=== PATIENT | female | born 1950 | race American Indian/Alaskan Native ===

== ENCOUNTER 2019-01-30 05:00 | Inpatient (IN) | payer MEDICARE ==
[2019-01-30 05:42] LABS: Basophils % (Auto) 0.3 % (0.0-1.8); Eosinophils # (Auto) 0.1 K/mm3 (0.0-0.4); Hematocrit 32.7 % (30.3-42.9); Hemoglobin 10.9 gm/dl (10.1-14.3); Lymphocytes # (Auto) 0.9 K/mm3 (1.2-5.4); Mean Corpuscular HGB Conc 33 % (30-34); Mean Corpuscular Volume 82 fl (79-97); Monocytes # (Auto) 0.4 K/mm3 (0.0-0.8); Monocytes % (Auto) 3.9 % (0.0-7.3); Platelet Count 340 K/mm3 (140-440); Red Cell Distribution Width 13.1 % (13.2-15.2)
[2019-01-30 05:55] LABS: Albumin 4.2 g/dL (3.9-5)
[2019-01-30] MEDS ORDERED: DILAUDID IV ONE ×2 (06:31→11:06)
--- NOTE | 2019-01-30 06:32 | Emergency Department Report ---
ED Abdominal Pain HPI - General Chief Complaint: Abdominal Pain Stated Complaint: HYPERGLYCEMIA, ABD PAIN Time Seen by Provider: 01/30/19 06:28 Source: patient, EMS Mode of arrival: Stretcher Limitations: No Limitations - History of Present Illness Initial Comments: Patient is a 68-year-old female presents to emergency room with complaints of left lower quadrant abdominal pain. Patient states the pain started at 2 AM today. Patient states pain is not radiating. Patient states the pain is 10 out of 10. Patient states the pain is better with rest and worse with vomiting and movement. Patient complains of constipation, nausea and vomiting. Patient denies chest pain shortness of breath. Patient denies fever or chills.. MD Complaint: abdominal pain -: Sudden Location: LLQ Radiation: none Migration to: no migration Severity: severe Severity scale (0 -10): 10 Quality: stabbing Consistency: constant Improves With: rest Worsens With: vomiting, movement Associated Symptoms: nausea, vomiting, constipation. denies: diarrhea, fever, chills, dysuria, hematemesis, hematochezia, melena, hematuria, anorexia, syncope - Related Data LMP (females 10-50): unknown Home Medications Medication Instructions Recorded Confirmed Last Taken Aspirin [Adult Aspirin] 81 mg PO DAILY 01/30/19 01/30/19 Unknown Dulaglutide [Trulicity] 1.5 mg SUB-Q TU 01/30/19 01/30/19 Unknown Levothyroxine [Synthroid] 50 mcg PO QDAY 01/30/19 01/30/19 Unknown Losartan/Hydrochlorothiazide 1 each PO DAILY 01/30/19 01/30/19 Unknown [Losartan-Hctz 50-12.5 mg Tab] metFORMIN XR [Glucophage XR] 500 mg PO BID 01/30/19 01/30/19 Unknown Allergies Allergy/AdvReac Type Severity Reaction Status Date / Time No Known Allergies Allergy Verified 01/30/19 05:24 ED Review of Systems ROS: Stated complaint: HYPERGLYCEMIA, ABD PAIN Other details as noted in HPI Constitutional: denies: chills, fever Eyes: denies: eye pain, eye discharge, vision change ENT: denies: ear pain, throat pain Respiratory: denies: cough, shortness of breath, wheezing Cardiovascular: denies: chest pain, palpitations Endocrine: no symptoms reported Gastrointestinal: abdominal pain, nausea, vomiting, constipation. denies: diarrhea Genitourinary: denies: urgency, dysuria, discharge Musculoskeletal: denies: back pain, joint swelling, arthralgia Skin: denies: rash, lesions Neurological: denies: headache, weakness, paresthesias Psychiatric: denies: anxiety, depression Hematological/Lymphatic: denies: easy bleeding, easy bruising ED Past Medical Hx - Past Medical History Previous Medical History?: Yes Hx Hypertension: Yes Hx Diabetes: Yes Additional medical history: hypothyroidism - Surgical History Past Surgical History?: No - Social History Smoking Status: Never Smoker - Medications Home Medications: Home Medications Medication Instructions Recorded Confirmed Last Taken Type Aspirin [Adult Aspirin] 81 mg PO DAILY 01/30/19 01/30/19 Unknown History Dulaglutide [Trulicity] 1.5 mg SUB-Q TU 01/30/19 01/30/19 Unknown History Levothyroxine [Synthroid] 50 mcg PO QDAY 01/30/19 01/30/19 Unknown History Losartan/Hydrochlorothiazide 1 each PO DAILY 01/30/19 01/30/19 Unknown History [Losartan-Hctz 50-12.5 mg Tab] metFORMIN XR [Glucophage XR] 500 mg PO BID 01/30/19 01/30/19 Unknown History ED Physical Exam - General Limitations: No Limitations General appearance: alert, in no apparent distress - Head Head exam: Present: atraumatic, normocephalic - Eye Eye exam: Present: normal appearance - ENT ENT exam: Present: mucous membranes moist - Neck Neck exam: Present: normal inspection - Respiratory Respiratory exam: Present: normal lung sounds bilaterally. Absent: respiratory distress - Cardiovascular Cardiovascular Exam: Present: regular rate, normal rhythm. Absent: systolic murmur, diastolic murmur, rubs, gallop - GI/Abdominal GI/Abdominal exam: Present: soft, tenderness (tenderness to palpation to left lower quadrant), normal bowel sounds - Extremities Exam Extremities exam: Present: normal inspection - Back Exam Back exam: Present: normal inspection - Neurological Exam Neurological exam: Present: alert, oriented X3 - Psychiatric Psychiatric exam: Present: normal affect, normal mood - Skin Skin exam: Present: warm, dry, intact, normal color. Absent: rash ED Course Vital Signs 01/30/19 05:27 Temperature 98.1 F Pulse Rate 85 Respiratory 18 Rate Blood Pressure 147/69 [Left] O2 Sat by Pulse 99 Oximetry - Reevaluation(s) Reevaluation #1: I discussed all results with patient. I discussed plan of care outpatient. Patient is pleasant here. Patient states her pain was improving but now is returning. 01/30/19 11:06 ED Medical Decision Making - Lab Data Result diagrams: 01/30/19 05:27 01/30/19 05:27 - Radiology Data Radiology results: report reviewed CT ABDOMEN AND PELVIS WITH CONTRAST HISTORY: Abdominal pain, left lower quadrant abdominal pain. COMPARISON: None. TECHNIQUE: Helical CT images of the abdomen and pelvis were obtained following administration of intravenous contrast. Sagittal and coronal reformatted images were reviewed. All CT scans at this location are performed using CT dose reduction for ALARA by means of automated exposure control. CONTRAST: 60 ml of intravenous contrast administered. FINDINGS: Abdomen/pelvis: A large calculus measuring 1.0 x 0.9 x 2.0 cm is identified at the left ureteropelvic junction. There is mild pyelocaliectasis in the left kidney and mild left perinephric stranding. 2.4 cm and 1.0 cm cysts are noted in the superior left kidney. The right kidney and collecting system are unremarkable. Normal bladder. The liver, biliary system, pancreas, spleen, adrenal glands, uterus, adnexa, bowel loops and appendix are unremarkable. No evidence for ascites, acute inflammation or free air. Lungs/bones: No significant abnormality. IMPRESSION: 1.0 x 0.9 x 2.0 cm stone at the left ureteropelvic junction, mildly obstructing. - Medical Decision Making Patient is a 68-year-old female presents to emergency with complaints of nausea vomiting and abdominal pain. Patient abdominal pain in the left lower quadrant. Patient had a CT scan done which shows obstructive renal stone with perinephric stranding. Patient admitted to the hospitalist service. Patient's labs unremarkable except for an elevated creatinine and decreased GFR consistent with dehydration and acute renal insufficiency. Patient's UA is positive for UTI. Patient given fluids and nausea medications and pain meds in ER. Patient's nausea and pain improved. Patient given antibiotics. - Differential Diagnosis abd pain. diverticulitis. Critical Care Time: Yes Critical care attestation.: If time is entered above; I have spent that time in minutes in the direct care of this critically ill patient, excluding procedure time. Critical Care Time: 35 minutes ED Disposition Clinical Impression: Pyelonephritis, Kidney stone on left side, Dehydration, Renal insufficiency Abdominal pain Qualifiers: Abdominal location: left lower quadrant Qualified Code(s): R10.32 - Left lower quadrant pain Nausea & vomiting Qualifiers: Vomiting type: unspecified Vomiting Intractability: non-intractable Qualified Code(s): R11.2 - Nausea with vomiting, unspecified Disposition: 09 OP ADMIT IP TO THIS HOSP Is pt being admited?: Yes Does the pt Need Aspirin: No Condition: Critical Time of Disposition: 11:39
[2019-01-30 07:14] LABS: Bacteria,Urine 1+ /HPF (Negative); Bilirubin,Urine NEG (Negative); Blood,Urine MOD (Negative); Color,Urine Straw (Yellow); Mucus,Urine FEW /HPF; Protein,Urine <15 mg/dL mg/dL (Negative); Urobilinogen,Urine < 2.0 mg/dL (<2.0)
[2019-01-30] MEDS ORDERED: NACL 0.9% 1000 ML 1,000 ML IV ONE ×2 (07:42→11:06)
--- NOTE | 2019-01-30 11:01 | Cat Scan Report ---
CT ABDOMEN AND PELVIS WITH CONTRAST HISTORY: Abdominal pain, left lower quadrant abdominal pain. COMPARISON: None. TECHNIQUE: Helical CT images of the abdomen and pelvis were obtained following administration of intr avenous contrast. Sagittal and coronal reformatted images were reviewed. All CT scans at this [facility] are performed using CT dose reduction for ALARA by means of automated exposure control. CONTRAST: 60 ml of intravenous contrast administered. FINDINGS: Abdomen/pelvis: A large calculus measuring 1.0 x 0.9 x 2.0 cm is identified at the left ureteropelvi c junction. There is mild pyelocaliectasis in the left kidney and mild left perinephric stranding. 2. 4 cm and 1.0 cm cysts are noted in the superior left kidney. The right kidney and collecting system a re unremarkable. Normal bladder. The liver, biliary system, pancreas, spleen, adrenal glands, uterus, adnexa, bowel loops and appendix are unremarkable. No evidence for ascites, acute inflammation or free air. Lungs/bones: No significant abnormality. IMPRESSION: 1.0 x 0.9 x 2.0 cm stone at the left ureteropelvic junction, mildly obstructing. Signer Name: Lance Pickett Jr, MD Signed: 01/30/2019 10:56 AM Workstation Name: [id number]
[2019-01-30] MEDS ORDERED: MAXIPIME/NS 2 GM/100 ML 2 GM/100 ML BAG IV ONE (11:09)
--- NOTE | 2019-01-30 19:58 | Event Note ---
Date: 01/30/19 See history and physical in the reports Left renal stone at [facility] Hypertension Type 2 diabetes Urology consult requested
[2019-01-30] MEDS ORDERED: NON-FORMULARY (Losartan/Hydrochlorothiazide [Losartan-Hctz 50-12.5 Mg Tab] 1 EACH) PO SCH (20:00)
[2019-01-30] MEDS ORDERED: TYLENOL PO PRN (20:12)
[2019-01-30] MEDS ORDERED: PHENERGAN PR PRN (20:12)
[2019-01-30] MEDS ORDERED: REGLAN IV PRN (20:12)
[2019-01-30] MEDS ORDERED: ZOFRAN IV PRN (20:12)
[2019-01-30] MEDS ORDERED: SODIUM CHLORIDE FLUSH SYRINGE 10 ML IV PRN (20:12)
[2019-01-30] MEDS ORDERED: DILAUDID IV PRN (20:12)
[2019-01-30] MEDS ORDERED: TORADOL IV PRN (20:16)
--- NOTE | 2019-01-30 21:10 | History and Physical Report ---
CHIEF COMPLAINT: Left flank, and left lower quadrant pain since 2:00 a.m. HISTORY OF PRESENT ILLNESS: A 68-year-old -[place] female with a history of hypothyroidism, hypertension and type 2 diabetes, who comes in for first episode of left flank, and left lower quadrant pain. Pain is sharp, about 10 on a scale of 1-10, radiating to the left suprapubic region. No fever or chills. No shortness of breath. Pain is intermittent and very sharp. Not able to tolerate the pain. No nausea present. Vomiting x 1 episode. Also, complains of constipation. No chest pain. Never had similar symptoms in the past. PAST MEDICAL HISTORY: Significant for hypothyroidism, hypertension, type 2 diabetes. PAST SURGICAL HISTORY: None. SOCIAL HISTORY: Does not smoke. No alcohol, no recreational drugs. FAMILY HISTORY: Hypertension. CURRENT MEDICATIONS: Trulicity 1.5 mg subcutaneous q. weekly, levothyroxine 50 mcg p.o. daily, losartan/hydrochlorothiazide 50/12.5 once a day, metformin 500 twice a day. REVIEW OF SYSTEMS: Significant for left flank, and left lower quadrant pain. No fever or chills. Otherwise, 14-point review of systems negative. PHYSICAL EXAMINATION: GENERAL: Elderly female, looks younger than her age. VITAL SIGNS: Blood pressure is 122/60, temperature is 98.2, pulse is 69, respirations are 17, sats are 99%. HEENT: Unremarkable. Pupils are equal and reactive. NECK: Supple, no lymphadenopathy, no thyromegaly. LUNGS: Clear to auscultation and percussion. Good air entry. CARDIOVASCULAR: S1, S2 heard. No gallop, no murmur, no rub. Apical impulse in left fifth intercostal space and midclavicular line. ABDOMEN: Soft and benign. No hepatosplenomegaly. No guarding, no rigidity. Hernial orifices are normal. EXTREMITIES: Good pedal pulses. No pedal edema. CENTRAL NERVOUS SYSTEM: Alert and oriented x 4, nonfocal exam. SKIN: Normal. LABORATORY DATA: Significant for white count of 9500, hemoglobin of 10.9, hematocrit of 32.7 and platelet count of 340,000. Sodium is 137, potassium is 3.9, chloride 100.4, bicarbonate is 24, BUN and creatinine is 26 and 1.1, glucose is 385, albumin is 4.2, albumin globulin 1.2. Urine is negative for infection. Glucose is more than 500. CAT scan shows 1 cm x 0.9 cm x 2.07 cm stone in the left ureteropelvic junction mildly obstructing. ASSESSMENT AND PLAN: 1. Left renal stone. The patient started on IV fluids for possible migration of the stone into the bladder, but the patient may need a urological intervention. Urology consulted. In the meantime, pain management with IV Toradol and IV Dilaudid. IV fluids. 2. Type 2 diabetes. Continue Trulicity and will hold metformin for the time being. Also, sliding scale coverage. 3. Hypertension. Continue losartan and hydrochlorothiazide. 4. Hypothyroidism. Check TSH. Continue levothyroxine. Pain management. Continue IV Toradol alternating with IV Dilaudid. 5. Deep venous thrombosis prophylaxis, Lovenox 40 mg subcutaneous daily. JOB# [id number] VSM/NTS
[2019-01-30] MEDS: PEPCID IV SCH (21:39)
[2019-01-30] MEDS: SYNTHROID PO SCH (21:39)
[2019-01-30] MEDS: PERCOCET 5/325 PO PRN (21:39)
[2019-01-30] MEDS: SODIUM CHLORIDE FLUSH SYRINGE 10 ML IV SCH (21:41)
[2019-01-30] MEDS: NACL 0.9% 1000 ML 1,000 ML IV SCH (21:42)
[2019-01-30] MEDS: HALFPRIN EC PO SCH (21:50)
[2019-01-30] MEDS: HumaLOG SUB-Q SCH (21:51)
[2019-01-30] MEDS: LANTUS SUB-Q SCH ×2 (21:52→22:07)
[2019-01-31] MEDS: NACL 0.9% 1000 ML 1,000 ML IV SCH (05:27)
[2019-01-31 06:49] LABS: Basophils # (Auto) 0.1 K/mm3 (0.0-0.1); Basophils % (Auto) 0.9 % (0.0-1.8); Eosinophils # (Auto) 0.2 K/mm3 (0.0-0.4); Eosinophils % (Auto) 2.4 % (0.0-4.3); Hematocrit 29.4 % (30.3-42.9); Hemoglobin 9.8 gm/dl (10.1-14.3); Lymphocytes % (Auto) 31.2 % (13.4-35.0); Mean Corpuscular HGB Conc 33 % (30-34); Mean Corpuscular Volume 81 fl (79-97); Monocytes # (Auto) 0.7 K/mm3 (0.0-0.8); Monocytes % (Auto) 10.1 % (0.0-7.3); Platelet Count 308 K/mm3 (140-440); Red Blood Count 3.64 M/mm3 (3.65-5.03)
[2019-01-31 07:11] LABS: Albumin 3.3 g/dL (3.9-5); BUN/Creatinine Ratio 15; Blood Urea Nitrogen 18 mg/dL (7-17); Calcium 8.3 mg/dL (8.4-10.2); Hemolysis Index 6
[2019-01-31 07:34] LABS: Alanine Aminotransferase < 5 units/L (7-56)
[2019-01-31] MEDS ORDERED: DIPRIVAN 10 MG/ML IV ONE (08:45)
[2019-01-31] MEDS ORDERED: SUBLIMAZE ONE (08:46)
[2019-01-31] MEDS ORDERED: XYLOCAINE MPF 2% ONE (09:00)
[2019-01-31] MEDS ORDERED: PHENYLEPHRINE/NS Syringe 1,000 MCG/10 ML IV ONE (09:00)
[2019-01-31] MEDS ORDERED: ZOFRAN ONE (09:00)
[2019-01-31] MEDS: HumaLOG SUB-Q SCH ×2 (09:11→12:49)
[2019-01-31] MEDS ORDERED: VERSED ONE (09:13)
[2019-01-31] MEDS ORDERED: SUBLIMAZE IV PRN (09:21)
--- NOTE | 2019-01-31 09:21 | Anesthesia Consultation ---
Anesthesia Consult and Med Hx Date of service: 01/31/19 - Airway Anesthetic Teeth Evaluation: Good ROM Head & Neck: Adequate Mental/Hyoid Distance: Adequate Mallampati Class: Class III Intubation Access Assessment: Possibly Difficult - Pulmonary Exam CTA: Yes - Cardiac Exam Cardiac Exam: RRR - Pre-Operative Health Status ASA Pre-Surgery Classification: ASA2 Proposed Anesthetic Plan: General - Pulmonary Hx Smoking: No Hx Respiratory Symptoms: No - Cardiovascular System Hx Hypertension: Yes Hx Heart Attack/AMI: No Hx Percutaneous Transluminal Coronary Angioplasty (PTCA): No Hx Cardia Arrhythmia: No - Central Nervous System Hx Seizures: No CVA: No - Gastrointestinal Hx Gastroesophageal Reflux Disease: No - Endocrine Hx Renal Disease: No Hx Liver Disease: No Hx Non-Insulin Dependent Diabetes: Yes Hx Hypothyroidism: Yes - Hematic Hx Anemia: Yes - Other Systems Hx Obesity: Yes - Additional Comments Anesthesia Medical History Comments: No prior GA. No FHx anesthetic complications.
--- NOTE | 2019-01-31 09:21 | Anesthesia Day of Surgery ---
Anesthesia Day of Surgery - Day of Surgery Patient Examined: Yes Patient H&P Reviewed: Yes Patient is NPO: Yes
[2019-01-31] MEDS ORDERED: NACL 0.9% 1000 ML 1,000 ML ONE (09:28)
--- NOTE | 2019-01-31 09:41 | Consultation ---
History of Present Illness - Reason for Consult Consult date: 01/31/19 - History of Present Illness new to our service Patient is a 68-year-old female presents to emergency room with complaints of left lower quadrant abdominal pain. Patient states the pain started at 2 AM yesterday. Patient states pain is not radiating. Patient states the pain is 10 out of 10. Patient states the pain is better with rest and worse with vomiting and movement. Patient complains of constipation, nausea and vomiting. Patient denies chest pain shortness of breath. Patient denies fever or chills.. no hx of stones abd soft CTAP-- 1cm x2cm left renal stone with mild hydro a/P left kidney with colic discussed with Dr. Sagastume written info given & discussion cysto, stent will need outpt ESWL vs perc at later time Medications and Allergies Allergies Allergy/AdvReac Type Severity Reaction Status Date / Time No Known Allergies Allergy Verified 01/30/19 20:05 Home Medications Medication Instructions Recorded Confirmed Last Taken Type Aspirin [Adult Aspirin] 81 mg PO DAILY 01/30/19 01/30/19 Unknown History Dulaglutide [Trulicity] 1.5 mg SUB-Q TU 01/30/19 01/30/19 Unknown History Levothyroxine [Synthroid] 50 mcg PO QDAY 01/30/19 01/30/19 Unknown History Losartan/Hydrochlorothiazide 1 each PO DAILY 01/30/19 01/30/19 Unknown History [Losartan-Hctz 50-12.5 mg Tab] metFORMIN XR [Glucophage XR] 500 mg PO BID 01/30/19 01/30/19 Unknown History Active Meds: Active Medications Acetaminophen (Tylenol) 650 mg PO Q4H PRN PRN Reason: Pain MILD(1-3)/Fever >100.5/CORTEZ Aspirin (Halfprin Ec) 81 mg PO DAILY [facility] Last Admin: 01/30/19 21:50 Dose: 81 mg Documented by: Famotidine (Pepcid) 20 mg IV BID [facility] Last Admin: 01/30/19 21:39 Dose: 20 mg Documented by: Fentanyl (Sublimaze) 50 mcg IV Q5MIN PRN PRN Reason: Pain , Severe (7-10) Hydrochlorothiazide (Hctz) 12.5 mg PO QDAY [facility] Hydromorphone HCl (Dilaudid) 1 mg IV Q3H PRN PRN Reason: Pain , Severe (7-10) Sodium Chloride (Nacl 0.9% 1000 Ml) 1,000 mls @ 125 mls/hr IV DIRECT [facility] Last Admin: 01/31/19 05:27 Dose: 125 mls/hr Documented by: Insulin Glargine (Lantus) 20 units SUB-Q QHS [facility] Last Admin: 01/30/19 22:07 Dose: Not Given Documented by: Insulin Human Lispro (Humalog) 0 unit SUB-Q ACHS [facility]; Protocol Last Admin: 01/31/19 09:11 Dose: 3 unit Documented by: Ketorolac Tromethamine (Toradol) 30 mg IV Q6H PRN PRN Reason: Pain, Moderate (4-6) Stop: 02/04/19 20:15 Levothyroxine Sodium (Synthroid) 50 mcg PO QDAY [facility] Last Admin: 01/30/19 21:39 Dose: 50 mcg Documented by: Losartan Potassium (Cozaar) 50 mg PO QDAY [facility] Metoclopramide HCl (Reglan) 10 mg IV Q6H PRN PRN Reason: Nausea And Vomiting Miscellaneous Medication (Dulaglutide [Trulicity]) 1.5 mg SUB-Q TU [facility] Ondansetron HCl (Zofran) 4 mg IV Q8H PRN PRN Reason: Nausea And Vomiting Oxycodone/Acetaminophen (Percocet 5/325) 1 tab PO Q6H PRN PRN Reason: Pain, Moderate (4-6) Last Admin: 01/30/19 21:39 Dose: 1 tab Documented by: Promethazine HCl (Phenergan) 25 mg [place] Q6H PRN PRN Reason: N/V IF NPO AND NO IV ACCESS Sodium Chloride (Sodium Chloride Flush Syringe 10 Ml) 10 ml IV BID [facility] Last Admin: 01/30/19 21:41 Dose: 10 ml Documented by: Sodium Chloride (Sodium Chloride Flush Syringe 10 Ml) 10 ml IV PRN PRN PRN Reason: LINE FLUSH Exam - Constitutional Vitals: Temp Pulse Resp BP Pulse Ox 98.6 F 62 16 108/47 96 01/31/19 05:07 01/31/19 05:07 01/31/19 05:07 01/31/19 05:07 01/31/19 05:07 Results - Labs CBC & Chem 7: 01/31/19 05:38 01/31/19 05:38 Labs: Abnormal lab results 01/30/19 01/30/19 01/30/19 Range/Units 05:27 11:04 21:40 RBC (3.65-5.03) M/mm3 Hgb (10.1-14.3) gm/dl Hct (30.3-42.9) % MCH (28-32) pg RDW (13.2-15.2) % Bucks % (Auto) (0.0-7.3) % BUN (7-17) mg/dL Glucose (65-100) mg/dL POC Glucose 273 H 270 H (70-105) Hemoglobin A1c 10.0 H (4-6) % Calcium (8.4-10.2) mg/dL ALT (7-56) units/L Albumin (3.9-5) g/dL 01/31/19 01/31/19 01/31/19 Range/Units 05:38 05:38 08:22 RBC 3.64 L (3.65-5.03) M/mm3 Hgb 9.8 L (10.1-14.3) gm/dl Hct 29.4 L (30.3-42.9) % MCH 27 L (28-32) pg RDW 13.0 L (13.2-15.2) % Bucks % (Auto) 10.1 H (0.0-7.3) % BUN 18 H (7-17) mg/dL Glucose 246 H (65-100) mg/dL POC Glucose 238 H (70-105) Hemoglobin A1c (4-6) % Calcium 8.3 L (8.4-10.2) mg/dL ALT < 5 L (7-56) units/L Albumin 3.3 L (3.9-5) g/dL
[2019-01-31] MEDS ORDERED: OMNIPAQUE 300 MG/50 ML (CATH LAB) IV ONE (09:51)
[2019-01-31] MEDS ORDERED: COZAAR PO SCH (10:00)
[2019-01-31] MEDS ORDERED: HCTZ PO SCH (10:00)
--- NOTE | 2019-01-31 10:06 | Post Operative Note ---
Date of procedure: 01/31/19 Pre-op diagnosis: left renal stone with colic Post-op diagnosis: same Procedure: cysto, rpg, left stent Anesthesia: RAHAT Surgeon: RIOS ORTIZ Pathology: none Condition: stable Disposition: PACU (ok to dc home from [facility]-harvey on chart /appt 1-2 wks)
--- NOTE | 2019-01-31 10:29 | Operative Report ---
PREOPERATIVE DIAGNOSIS: Left renal stone with colic. POSTOPERATIVE DIAGNOSIS: Left renal stone with colic. PROCEDURE: Cystoscopy, bilateral retrograde pyelograms, left double-J stent placement (6-Moroccan 22 cm with a short internal string). SURGEON: Jakob Benavides MD ANESTHESIA: General. ESTIMATED BLOOD LOSS: Minimal. FLUIDS: Crystalloid. COMPLICATIONS: No complications. INDICATIONS: This patient is a 68-year-old female who presented to the Emergency Room with severe left flank pain. CT of abdomen and pelvis revealed a 1 x 2 cm left renal stone with mild hydronephrosis. She was admitted for pain control, consult by Dr. Arias was obtained. We evaluated the patient. She agreed to proceed with surgical intervention. She understands she will need outpatient lithotripsy. DESCRIPTION OF PROCEDURE: The patient was taken to the operative suite, placed in a supine position. After adequate general anesthesia, placed in a dorsal lithotomy position, prepped and draped in a sterile fashion. Pancystourethroscopy was performed with a 22-Moroccan Storz cystoscope. No bladder pathology. Both ureteral orifices in normal position. No tumors or stones noted. Bilateral retrograde pyelograms were obtained with an 8 Moroccan Gaastra catheter and 8 mL of contrast. No filling defects or obstruction on the right. The left side, obvious filling defect 1 x 2 cm stone appears to be poorly calcified suggesting may have a uric acid component. A 0.035 Glidewire was placed, 6-Moroccan 22 cm stent with a short internal string was placed without difficulty. There was a drainage of urine appeared to be cloudy and therefore, urine culture was obtained. Bladder was drained. She tolerated the procedure well. She will go home when stable from the medical service with Steffany. JOB# [id number] Paul/CHANCE
--- NOTE | 2019-01-31 10:47 | Post Anesthesia Evaluation ---
- Post Anesthesia Evaluation Patient Participated: Yes Airway Patent: Yes Stable Respiratory Function: Yes Nausea/Vomiting: No Temp > 96.8F: Yes Pain Manageable: Yes Adequeate Hydration: Yes Anesthesia Complications: No
--- NOTE | 2019-01-31 11:52 | Fluoroscopy Report ---
CLINICAL INDICATION: See reason for exam. TECHNICAL DATA: Portable fluoroscopy utilized by the attending physician. Fluoroscopy time 0.07 minutes and 4 static images obtained FINDINGS: Retrograde pyelogram demonstrates a filling defect in the left renal pelvis. The right renal pelvis a ppears normal. The ureters appear normal. Stent placement left ureter noted IMPRESSION: Double ended pigtail stent placement left ureter with a filling defect-calculus left renal pelvis Signer Name: Kristopher Abrams MD Signed: 01/31/2019 11:48 AM Workstation Name: [id number]
[2019-01-31] MEDS: SYNTHROID PO SCH (12:50)
[2019-01-31] MEDS: PEPCID IV SCH (12:51)
[2019-01-31] MEDS: HALFPRIN EC PO SCH (12:54)
[2019-01-31 12:55] VITALS: BP 127/67
[2019-01-31] MEDS: PERCOCET 5/325 PO PRN (14:10)
[2019-01-31] MEDS: SODIUM CHLORIDE FLUSH SYRINGE 10 ML IV SCH (14:11)
--- NOTE | 2019-01-31 14:30 | Discharge Summary ---
Providers - Providers Date of Admission: 01/30/19 11:40 Date of discharge: 01/31/19 Attending physician: HELENA SUTTON 01/30/19 20:03 Consult to Physician [CONS] Routine Comment: Consulting Provider: RIOS ORTIZ Physician Instructions: Reason For Exam: Renal stone LUPJ Primary care physician: HENRY GOEL Hospitalization Condition: Good Hospital course: Patient 68 years old admitted for flank pain nausea vomiting. Found to have kidney stones. Urology was called patient has stent placed stable for discharge. Upon discharge minimal pain. Disposition: DC-01 TO HOME OR SELFCARE Core Measure Documentation - Palliative Care Palliative Care/ Comfort Measures: Not Applicable - Core Measures Any of the following diagnoses?: none Exam - Constitutional Vitals: Temp Pulse Resp BP Pulse Ox 97 F L 74 15 127/67 98 01/31/19 10:10 01/31/19 10:35 01/31/19 10:35 01/31/19 12:54 01/31/19 10:35 General appearance: Present: no acute distress, well-nourished - EENT Eyes: Present: PERRL ENT: hearing intact, clear oral mucosa - Neck Neck: Present: supple, normal ROM - Respiratory Respiratory effort: normal Respiratory: bilateral: CTA - Cardiovascular Heart Sounds: Present: S1 & S2. Absent: rub, click - Extremities Extremities: pulses symmetrical, No edema Peripheral Pulses: within normal limits - Abdominal General gastrointestinal: Present: soft, non-tender, non-distended, normal bowel sounds Female genitourinary: Present: normal - Integumentary Integumentary: Present: clear, warm, dry - Musculoskeletal Musculoskeletal: gait normal, strength equal bilaterally - Psychiatric Psychiatric: appropriate mood/affect, intact judgment & insight - Neurologic Neurologic: CNII-XII intact, moves all extremities Plan Activity: advance as tolerated Weight Bearing Status: Weight Bear as Tolerated Diet: diabetic Special Instructions: record daily BP diary, record blood sugar diary Follow up with: HENRY GOEL MD [Primary Care Provider] - 3-5 Days Prescriptions: metFORMIN XR [Glucophage XR] 500 mg PO BID #30 tablet Lispro Insulin [HumaLOG] 0 unit SUB-Q ACHS #7 units Losartan/Hydrochlorothiazide [Losartan-Hctz 50-12.5 mg Tab] 1 each PO DAILY #30 tablet Levothyroxine [Synthroid] 50 mcg PO QDAY #30 tablet Dulaglutide [Trulicity] 1.5 mg SUB-Q TU #1 pen.[email or web address]
[2019-02-05] MEDS ORDERED: NON-FORMULARY (Dulaglutide [Trulicity] 1.5 MG) SUB-Q SCH (19:59)
== END 2019-01-31 16:44 | disposition home or self-care (01) | DRG 661 ==
LOC: ED 05:00 → 3A 11:40
PROVIDERS: ADMIT Internal Medicine; ATTEND Internal Medicine
PROC: 0T778DZ Dilation of Left Ureter with Intraluminal Device, Via Natural or Artificial Opening Endoscopic (ICD-10-PCS; principal; 2019-01-31)
PROC: BT141ZZ Fluoroscopy of Kidneys, Ureters and Bladder using Low Osmolar Contrast (ICD-10-PCS; 2019-01-31)
DX: N13.6 Pyonephrosis (principal); E66.9 Obesity, unspecified; E11.9 Type 2 diabetes mellitus without complications; I10 Essential (primary) hypertension; E03.9 Hypothyroidism, unspecified; E86.0 Dehydration; Z79.82 Long term (current) use of aspirin; Z79.84 Long term (current) use of oral hypoglycemic drugs; Z79.899 Other long term (current) drug therapy; Z82.49 Family history of ischemic heart disease and other diseases of the circulatory system; Z68.32 Body mass index [BMI] 32.0-32.9, adult
CPT/HCPCS: 36415; 74177; 74420; 80053; 81001; 82962; 83036; 84443; 85025; 87086; G0378; C1758; C1769; C2617; J0692; J1170; J1815; J2250; J2370; J2405; J2704; J3010; J7030; Q9967

== ENCOUNTER 2019-05-19 13:26 | Outpatient (CLI) | payer MEDICARE, OTHER ==
[2019-05-19 13:47] LABS: Bacteria,Urine 1+ /HPF (Negative); Bilirubin,Urine NEG (Negative); Blood,Urine LG (Negative); Color,Urine Yellow (Yellow); Mucus,Urine FEW /HPF; Protein,Urine <15 mg/dL mg/dL (Negative); Urobilinogen,Urine < 2.0 mg/dL (<2.0)
== END 2019-05-19 13:27 | disposition home or self-care (01) ==
LOC: LAB 13:26
PROVIDERS: ATTEND Internal Medicine
DX: N39.0 Urinary tract infection, site not specified (principal)
CPT/HCPCS: 81001; 87086

== ENCOUNTER 2020-05-19 12:50 | Emergency (ER) | payer MEDICARE, OTHER ==
[2020-05-19 13:07] VITALS: BP 121/75
--- NOTE | 2020-05-19 13:12 | Event Note ---
ED Screening Note Date of service: 05/19/20 Time: 13:08 ED Screening Note: Patient complains of lateral and upper back pain, mainly left-sided and chest pressure today History of kidney stones, hypertension, and diabetes Denies shortness of breath or leg pain/swelling This initial assessment/diagnostic orders/clinical plan/treatment(s) is/are subject to change based on patients health status, clinical progression and re- assessment by fellow clinical providers in the ED. Further treatment and workup at subsequent clinical providers discretion. Patient/guardian urged not to elope from the ED as their condition may be serious if not clinically assessed and managed. Initial orders include: Labs EKG Chest x-ray
[2020-05-19 13:30] LABS: Basophils # (Auto) 0.1 K/mm3 (0.0-0.1); Basophils % (Auto) 1.1 % (0.0-1.8); Eosinophils # (Auto) 0.2 K/mm3 (0.0-0.4); Eosinophils % (Auto) 2.6 % (0.0-4.3); Hematocrit 32.2 % (30.3-42.9); Hemoglobin 11.5 gm/dl (10.1-14.3); Lymphocytes # (Auto) 1.8 K/mm3 (1.2-5.4); Lymphocytes % (Auto) 28.7 % (13.4-35.0); Mean Corpuscular HGB Conc 36 % (30-34); Mean Corpuscular Volume 82 fl (79-97); Monocytes # (Auto) 0.4 K/mm3 (0.0-0.8); Monocytes % (Auto) 6.7 % (0.0-7.3); Platelet Count 340 K/mm3 (140-440); Red Blood Count 3.92 M/mm3 (3.65-5.03); Red Cell Distribution Width 13.2 % (13.2-15.2)
--- NOTE | 2020-05-19 13:47 | XRay Report ---
CHEST 2 VIEWS INDICATION / CLINICAL INFORMATION: chest pain. COMPARISON: None available. FINDINGS: SUPPORT DEVICES: None. HEART / MEDIASTINUM: No significant abnormality. LUNGS / PLEURA: No significant pulmonary or pleural abnormality. No pneumothorax. ADDITIONAL FINDINGS: No significant additional findings. IMPRESSION: No significant abnormality Signer Name: Thomas Hernández MD FACR Signed: 05/19/2020 1:43 PM Workstation Name: [id number]
[2020-05-19 13:56] LABS: Alanine Aminotransferase 7 units/L (7-56); Albumin 4.4 g/dL (3.9-5); BUN/Creatinine Ratio 23; Blood Urea Nitrogen 23 mg/dL (7-17); Calcium 9.8 mg/dL (8.4-10.2); Hemolysis Index 2
[2020-05-19 14:07] LABS: Bilirubin,Urine NEG (Negative); Blood,Urine NEG (Negative); Color,Urine Yellow (Yellow); Mucus,Urine FEW /HPF; Protein,Urine <15 mg/dL mg/dL (Negative); Urobilinogen,Urine < 2.0 mg/dL (<2.0)
--- NOTE | 2020-05-19 20:52 | Emergency Department Report ---
ED Chest Pain HPI - General Chief Complaint: Chest Pain Stated Complaint: CHEST/BACK PAIN/NAUSEA Time Seen by Provider: 05/19/20 13:07 Source: patient Mode of arrival: Ambulatory Limitations: No Limitations - History of Present Illness Initial Comments: Patient is a 69-year-old F [place] female who is presenting with some lower back pain and some chest discomfort earlier today. Patient states she went to work and was sitting at her desk and was complaining of some generalized lower back discomfort. States it was left greater than right. States it was similar to pain she has had with a kidney stone however not as intense. After several hours the patient states there was a sharp pain that radiated into the left shoulder that lasted just several seconds. She became nervous and then started having some chest discomfort and nausea. This is what prompted the patient to come to the emergency department. Patient's chest pain left shoulder pain is completely resolved. Still states she has some mild lower back discomfort. There is no radiation of the pain is a 3 out of 10 in severity Severity scale (0 -10): 5 - Related Data Home Medications Medication Instructions Recorded Confirmed Last Taken Aspirin [Adult Aspirin] 81 mg PO DAILY 01/30/19 02/26/19 1 Week Ago ~02/19/19 Lispro Insulin [HumaLOG] 0 unit SUB-Q QHS 02/24/19 02/24/19 02/25/19 Previous Rx's Medication Instructions Recorded Last Taken Type Acetaminophen [Acetaminophen TAB] 650 mg PO Q4H PRN tablet 01/31/19 2 Weeks Ago Rx ~02/12/19 Levothyroxine [Synthroid] 50 mcg PO QDAY #30 tablet 01/31/19 02/25/19 Rx Losartan/Hydrochlorothiazide 1 each PO DAILY #30 tablet 01/31/19 02/25/19 Rx [Losartan-Hctz 50-12.5 mg Tab] metFORMIN XR [Glucophage XR] 500 mg PO BID #30 tablet 01/31/19 02/25/19 Rx traMADoL [Ultram] 50 mg PO Q6HR PRN #30 tablet 01/31/19 02/23/19 Rx traMADoL [Ultram] 50 mg PO Q6HR PRN #30 tablet 02/26/19 Unknown Rx Nitrofurantoin [place]/M-Cryst 100 mg PO Q12HR #14 capsule 05/19/20 Unknown Rx [Macrobid CAP] Ondansetron [Zofran Odt] 4 mg PO Q8HR #10 tab.rapdis 05/19/20 Unknown Rx traMADoL [Ultram] 50 mg PO Q6HR PRN #12 tablet 05/19/20 Unknown Rx Allergies Allergy/AdvReac Type Severity Reaction Status Date / Time No Known Allergies Allergy Verified 01/30/19 20:05 Heart Score - HEART Score History: Slightly suspicious EKG: Normal Age: > 65 Risk factors: 1-2 risk factors Troponin: < normal limit HEART Score: 3 ED Review of Systems ROS: Stated complaint: CHEST/BACK PAIN/NAUSEA Other details as noted in HPI Comment: All other systems reviewed and negative ED Past Medical Hx - Past Medical History Previous Medical History?: Yes Hx Hypertension: Yes (X 15 YRS) Hx Heart Attack/AMI: No Hx Diabetes: Yes Hx Liver Disease: No Hx Renal Disease: Yes (CRI) Hx Seizures: No Hx Kidney Stones: Yes Hx HIV: No Additional medical history: hypothyroidism - Surgical History Past Surgical History?: Yes Hx Breast Surgery: Yes (BREAST BX ( NEG)) - Social History Smoking Status: Never Smoker - Medications Home Medications: Home Medications Medication Instructions Recorded Confirmed Last Taken Type Aspirin [Adult Aspirin] 81 mg PO DAILY 01/30/19 02/26/19 1 Week Ago History ~02/19/19 Acetaminophen [Acetaminophen TAB] 650 mg PO Q4H PRN tablet 01/31/19 02/26/19 2 Weeks Ago Rx ~02/12/19 Levothyroxine [Synthroid] 50 mcg PO QDAY #30 tablet 01/31/19 02/24/19 02/25/19 Rx Losartan/Hydrochlorothiazide 1 each PO DAILY #30 tablet 01/31/19 02/24/19 02/25/19 Rx [Losartan-Hctz 50-12.5 mg Tab] metFORMIN XR [Glucophage XR] 500 mg PO BID #30 tablet 01/31/19 02/24/19 02/25/19 Rx traMADoL [Ultram] 50 mg PO Q6HR PRN #30 tablet 01/31/19 02/26/19 02/23/19 Rx Lispro Insulin [HumaLOG] 0 unit SUB-Q QHS 02/24/19 02/24/19 02/25/19 History traMADoL [Ultram] 50 mg PO Q6HR PRN #30 tablet 02/26/19 Unknown Rx Nitrofurantoin [place]/M-Cryst 100 mg PO Q12HR #14 capsule 05/19/20 Unknown Rx [Macrobid CAP] Ondansetron [Zofran Odt] 4 mg PO Q8HR #10 tab.rapdis 05/19/20 Unknown Rx traMADoL [Ultram] 50 mg PO Q6HR PRN #12 tablet 05/19/20 Unknown Rx ED Physical Exam - General Limitations: No Limitations General appearance: alert, in no apparent distress - Head Head exam: Present: atraumatic, normocephalic - Eye Eye exam: Present: normal appearance - ENT ENT exam: Present: normal orophraynx, mucous membranes moist - Neck Neck exam: Present: normal inspection - Respiratory Respiratory exam: Present: normal lung sounds bilaterally. Absent: respiratory distress, wheezes, rales, rhonchi - Cardiovascular Cardiovascular Exam: Present: regular rate, normal rhythm, normal heart sounds. Absent: systolic murmur, diastolic murmur, rubs, gallop - GI/Abdominal GI/Abdominal exam: Present: soft, normal bowel sounds. Absent: distended, tenderness, guarding, rebound, rigid - Extremities Exam Extremities exam: Present: normal inspection - Back Exam Back exam: Present: normal inspection. Absent: CVA tenderness (R), CVA tender ness (L) - Neurological Exam Neurological exam: Present: alert, oriented X3 - Psychiatric Psychiatric exam: Present: normal affect, normal mood - Skin Skin exam: Present: warm, dry, intact, normal color. Absent: rash ED Course Vital Signs 05/19/20 13:03 Temperature 98.5 F Pulse Rate 77 Respiratory 16 Rate Blood Pressure 121/75 [Right] O2 Sat by Pulse 100 Oximetry ED Medical Decision Making - Lab Data Result diagrams: 05/19/20 13:22 05/19/20 13:22 Lab Results 05/19/20 05/19/20 05/19/20 Range/Units 13:22 13:22 16:35 WBC 6.1 (4.5-11.0) K/mm3 RBC 3.92 (3.65-5.03) M/mm3 Hgb 11.5 (10.1-14.3) gm/dl Hct 32.2 (30.3-42.9) % MCV 82 (79-97) fl MCH 29 (28-32) pg MCHC 36 H (30-34) % RDW 13.2 (13.2-15.2) % Plt Count 340 (140-440) K/mm3 Lymph % (Auto) 28.7 (13.4-35.0) % [place] % (Auto) 6.7 (0.0-7.3) % Eos % (Auto) 2.6 (0.0-4.3) % Baso % (Auto) 1.1 (0.0-1.8) % Lymph # (Auto) 1.8 (1.2-5.4) K/mm3 [place] # (Auto) 0.4 (0.0-0.8) K/mm3 Eos # (Auto) 0.2 (0.0-0.4) K/mm3 Baso # (Auto) 0.1 (0.0-0.1) K/mm3 Seg Neutrophils % 60.9 (40.0-70.0) % Seg Neutrophils # 3.7 (1.8-7.7) K/mm3 Sodium 137 (137-145) mmol/L Potassium 4.2 (3.6-5.0) mmol/L Chloride 103.1 (98-107) mmol/L Carbon Dioxide 24 (22-30) mmol/L Anion Gap 14 mmol/L BUN 23 H (7-17) mg/dL Creatinine 1.0 (0.6-1.2) mg/dL Estimated GFR > 60 ml/min BUN/Creatinine Ratio 23 % Glucose 167 H (65-100) mg/dL Calcium 9.8 (8.4-10.2) mg/dL Total Bilirubin 0.30 (0.1-1.2) mg/dL AST 9 (5-40) units/L ALT 7 (7-56) units/L Alkaline Phosphatase 92 (35-129) units/L Troponin T < 0.010 < 0.010 (0.00-0.029) ng/mL Total Protein 7.8 (6.3-8.2) g/dL Albumin 4.4 (3.9-5) g/dL Albumin/Globulin Ratio 1.3 % Urine Color (Yellow) Urine Turbidity (Clear) Urine pH (5.0-7.0) Ur Specific [place] (1.003-1.030) Urine Protein (Negative) mg/dL Urine Glucose (UA) (Negative) mg/dL Urine Ketones (Negative) mg/dL Urine Blood (Negative) Urine Nitrite (Negative) Urine Bilirubin (Negative) Urine Urobilinogen (<2.0) mg/dL Ur Leukocyte Esterase (Negative) Urine WBC (Auto) (0.0-6.0) /HPF Urine RBC (Auto) (0.0-6.0) /HPF Urine Mucus /HPF 05/19/20 Range/Units Unknown WBC (4.5-11.0) K/mm3 RBC (3.65-5.03) M/mm3 Hgb (10.1-14.3) gm/dl Hct (30.3-42.9) % MCV (79-97) fl MCH (28-32) pg MCHC (30-34) % RDW (13.2-15.2) % Plt Count (140-440) K/mm3 Lymph % (Auto) (13.4-35.0) % [place] % (Auto) (0.0-7.3) % Eos % (Auto) (0.0-4.3) % Baso % (Auto) (0.0-1.8) % Lymph # (Auto) (1.2-5.4) K/mm3 [place] # (Auto) (0.0-0.8) K/mm3 Eos # (Auto) (0.0-0.4) K/mm3 Baso # (Auto) (0.0-0.1) K/mm3 Seg Neutrophils % (40.0-70.0) % Seg Neutrophils # (1.8-7.7) K/mm3 Sodium (137-145) mmol/L Potassium (3.6-5.0) mmol/L Chloride (98-107) mmol/L Carbon Dioxide (22-30) mmol/L Anion Gap mmol/L BUN (7-17) mg/dL Creatinine (0.6-1.2) mg/dL Estimated GFR ml/min BUN/Creatinine Ratio % Glucose (65-100) mg/dL Calcium (8.4-10.2) mg/dL Total Bilirubin (0.1-1.2) mg/dL AST (5-40) units/L ALT (7-56) units/L Alkaline Phosphatase (35-129) units/L Troponin T (0.00-0.029) ng/mL Total Protein (6.3-8.2) g/dL Albumin (3.9-5) g/dL Albumin/Globulin Ratio % Urine Color Yellow (Yellow) Urine Turbidity Clear (Clear) Urine pH 5.0 (5.0-7.0) Ur Specific [place] 1.021 (1.003-1.030) Urine Protein <15 mg/dl (Negative) mg/dL Urine Glucose (UA) Neg (Negative) mg/dL Urine Ketones Neg (Negative) mg/dL Urine Blood Neg (Negative) Urine Nitrite Neg (Negative) Urine Bilirubin Neg (Negative) Urine Urobilinogen < 2.0 (<2.0) mg/dL Ur Leukocyte Esterase Tr (Negative) Urine WBC (Auto) 3.0 (0.0-6.0) /HPF Urine RBC (Auto) 3.0 (0.0-6.0) /HPF Urine Mucus Few /HPF - EKG Data -: EKG Interpreted by Ri EKG shows normal: sinus rhythm, axis, intervals, QRS complexes, ST-T waves Rate: normal - EKG Data Interpretation: normal EKG - Radiology Data Chest x-ray is within normal limits - Medical Decision Making Patient is a 69-year-old F [place] female who main complaint is low back discomfort. States this is left greater than right and is not worse with movement. She states this is somewhat similar to when she had a kidney stone but less intense. Patient then has some radiating pain to the left shoulder and she began having some chest discomfort. Believe the chest discomfort is likely secondary to anxiety after having the sharp pain. Pain is resolved. Patient is urinalysis shows she does have trace leuk esterase and small amount of blood and white blood cells in her urine. She likely has a urinary tract infection. Patient does have a urologist and can follow-up in case the pain intensifies. Patient states she has been here quite a long time today and understandably does not want to stay for any additional imaging studies to rule out kidney stone. Patient does not appear to have an obstruction of her ureter as she is relatively comfortable and is not vomiting and her pain is 2 or 3 out of 10. Patient be discharged home with prescription for Macrobid and follow-up with her urologist as needed. Critical care attestation.: If time is entered above; I have spent that time in minutes in the direct care of this critically ill patient, excluding procedure time. ED Disposition Clinical Impression: Chest pain, atypical Acute cystitis Qualifiers: Hematuria presence: with hematuria Qualified Code(s): N30.01 - Acute cystitis with hematuria Disposition: TO HOME OR SELFCARE Is pt being admited?: No Does the pt Need Aspirin: No Condition: Stable Instructions: Chest Pain (ED), Nonspecific Chest Pain, Adult, [id number], Ur inary Tract Infection, Adult Referrals: PRIMARY CARE, [Primary Care Provider] - 3-5 Days Time of Disposition: 20:53
== END 2020-05-19 21:55 | disposition home or self-care (01) ==
LOC: ED 12:50
DX: N30.00 Acute cystitis without hematuria (principal); R07.89 Other chest pain; I10 Essential (primary) hypertension; E11.9 Type 2 diabetes mellitus without complications; Z98.890 Other specified postprocedural states; Z79.84 Long term (current) use of oral hypoglycemic drugs; Z79.899 Other long term (current) drug therapy
CPT/HCPCS: 36415; 71046; 80053; 81001; 84484; 85025; 93005

== ENCOUNTER 2020-06-06 07:42 | Outpatient (CLI) | payer MEDICARE, OTHER ==
--- NOTE | 2020-06-06 09:45 | Mammography Report ---
DIGITAL SCREENING MAMMOGRAM WITH CAD, 06/06/2020 CLINICAL INFORMATION / INDICATION: Routine screening mammography. TECHNIQUE: Digital bilateral 2D mammography was obtained in the craniocaudal and mediolateral obliqu e projections. This examination was interpreted with the benefit of Computer-Aided Detection analysis . COMPARISON: None available. FINDINGS: Breast Density: There are scattered areas of fibroglandular density. No dominant mass, suspicious calcifications, or architectural distortion in either breast. IMPRESSION: No mammographic evidence of malignancy. Follow up recommendation: Routine yearly BI-RADS Category 1: Negative. A "normal" or negative report should not discourage follow up or biopsy of a clinically significant f inding. A written summary of these findings will be mailed to the patient. The patient will be entered into a mammography reporting system which will generate a reminder letter for the patient's next appointmen t at the appropriate interval. The [employer] recommends yearly mammograms starting at age 40 and continuing as l jesús as a woman is in good health. Breast MRI is recommended for women with an approximate 20-25% or greater lifetime risk of breast cancer, including women with a strong family history of breast or ova vadim cancer or who have been treated for Hodgkin's disease. Signer Name: Nallely Escalante MD Signed: 06/06/2020 9:40 AM Workstation Name: [id number]
== END 2020-06-06 07:43 | disposition home or self-care (01) ==
LOC: MAMMO 07:42
PROVIDERS: ATTEND Internal Medicine
DX: Z12.31 Encounter for screening mammogram for malignant neoplasm of breast (principal)
CPT/HCPCS: 77067

== ENCOUNTER 2020-09-01 14:22 | Outpatient (CLI) | payer MEDICARE, OTHER ==
--- NOTE | 2020-09-01 15:27 | XRay Report ---
CHEST 2 VIEWS INDICATION: COUGH. COMPARISON: 05/19/2020 FINDINGS: Support devices: None. Heart: Within normal limits. Lungs/pleura: No acute air space or interstitial disease. No pneumothorax. Additional findings: None. IMPRESSION: No acute findings. Signer Name: Lance Pickett Jr, MD Signed: 09/01/2020 3:22 PM Workstation Name: [id number]
== END 2020-09-01 14:23 | disposition home or self-care (01) ==
LOC: LAB 14:22
PROVIDERS: ATTEND Internal Medicine
DX: R05 Cough (principal)
CPT/HCPCS: 71046